=== PATIENT | female | born 1965 | race Caucasian/White ===

== ENCOUNTER 2018-06-08 10:20 | Day surgery (SDC) | payer OTHER ==
[~2018-06-08 10:20] MED LIST: PROPOFOL 200 MG/20 ML VIAL IV ONE
--- NOTE | 2018-06-10 10:48 | GI Report ---
REFERRING PHYSICIAN: NARGIS Phillips [employer]ING [employer]ATE [employer]KER: Ahmet Carpenter MD PROCEDURE MEDICATION: Propofol as per anesthesia. INDICATIONS: This 52-year-old woman is referred for a screening. She denies any change in her stool or bleeding. She is not aware of a family history of colorectal cancer. PROCEDURE PERFORMED: Colonoscopy. PROCEDURE: An Olympus video colonoscope was advanced to the rectum and all the way to the cecum. The appendiceal orifice was normal. The terminal ileum was normal. On slow withdrawal, the cecum, ascending colon, and transverse colon with no obvious intraluminal lesions noted. The descending colon and sigmoid, again, no obvious intraluminal lesions were noted. Retroflexion of the rectum was normal. Patient tolerated the procedure well. FINDINGS: Normal screening colonoscopy. RECOMMENDATIONS: 1. Continue a high-fiber diet. 2. Consider re-looking at her colon in 10 years, sooner if clinically indicated. cc: NARGIS Phillips [facility]
== END 2018-06-08 11:50 ==
LOC: OPSURG 10:20
PROVIDERS: ATTEND Internal Medicine Gastroenterology
DX: Z12.11 Encounter for screening for malignant neoplasm of colon (principal)
CPT/HCPCS: 45378; J2704; S1016

== ENCOUNTER 2018-10-16 07:47 | Outpatient (CLI) | payer OTHER | END 2018-10-16 07:50 | LOC: LAB 07:47 | PROVIDERS: ATTEND Family Medicine | DX: E03.9 Hypothyroidism, unspecified (principal) | CPT/HCPCS: 36415; 84445 ==